=== PATIENT | female | born 1965 | race Caucasian/White ===

== ENCOUNTER 2018-06-12 22:31 | Inpatient (IN) | payer SELFPAY ==
[2018-06-12] MEDS ORDERED: IPRATROPIUM BROM 0.5MG/2.5ML ONE (22:43)
[2018-06-12] MEDS ORDERED: LEVALBUTEROL 1.25 MG/3 ML NEB ONE (22:43)
[2018-06-12] MEDS ORDERED: DEXAMETHASONE 4 MG/ML VIAL ONE (22:49)
[2018-06-12] MEDS ORDERED: METHYLPREDNISOLONE 125 MG INJ ONE (22:49)
[2018-06-12] MEDS ORDERED: Levofloxacin500mg IV 500 MG/100 ML BAG IV ONE (22:50)
--- NOTE | 2018-06-12 22:55 | ER ---
Nurse's Notes [facility] Name: Bere Cheatham Age: 52 yrs Sex: Female : 1965 Arrival Date: 06/12/2018 Time: 22:32 Bed 14 Private MD: Diagnosis: Chronic obstructive pulmonary disease with (acute) exacerbation;Tobacco abuse counseling;Tobacco use;Hypoxemia Presentation: 06/12 22:42 Presenting complaint: Patient states: "I can't seem to catch my breath. it is very hard jd3 to breath.". Transition of care: patient was not received from another setting of care. Onset of symptoms was June 12, 2018. Risk Assessment: Do you want to hurt yourself or someone else? Patient reports no desire to harm self or others. Initial Sepsis Screen: Does the patient meet any 2 criteria? RR > 20 per min. HR > 90 bpm. Does the patient have a suspected source of infection? No. Patient's initial sepsis screen is negative. Care prior to arrival: None. 22:42 Method Of Arrival: Ambulatory j 22:42 Acuity: KEANU 2 jd3 Triage Assessment: 22:47 Respiratory: Reports shortness of breath at rest Onset: The symptoms/episode jd3 began/occurred just prior to arrival, the patient has moderate shortness of breath. 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 jd3 Historical: - Allergies: 22:44 Ampicillin; jd3 - Home Meds: 22:44 None [Active]; jd3 - PMHx: 22:44 None; jd3 - PSHx: 22:44 Tonsillectomy; jd3 - Immunization history:: Adult Immunizations unknown. - Social history:: Smoking status: Patient uses tobacco products, smokes one-half pack cigarettes per day. - Ebola Screening: : Patient negative for fever greater than or equal to 101.5 degrees Fahrenheit, and additional compatible Ebola Virus Disease symptoms. Screenin:46 Abuse screen: Denies threats or abuse. Nutritional screening: No deficits noted. jd3 Tuberculosis screening: No symptoms or risk factors identified. Fall Risk IV access (20 points). Ambulatory Aid- None/Bed Rest/Nurse Assist (0 pts). Gait- Normal/Bed Rest/Wheelchair (0 pts) Mental Status- Oriented to own ability (0 pts). Total Linda Fall Scale indicates No Risk (0-24 pts). Assessment: 22:50 General: Appears uncomfortable, Behavior is cooperative, restless. Pain: Denies pain. ea Neuro: Level of Consciousness is awake, alert, obeys commands, Oriented to person, place, time, situation. Cardiovascular: Heart tones S1 S2 present Patient's skin is warm and dry. Respiratory: Respiratory: Airway is patent Respiratory effort is labored, shallow, Respiratory pattern is tachypnea Breath sounds are diminished bilaterally. Breath sounds with wheezes bilaterally. GI: No signs and/or symptoms were reported involving the gastrointestinal system. Derm: Skin is pink, warm \\T\\ dry. 23:30 Cardiovascular: Rhythm is sinus tachycardia. ea 23:57 Reassessment: Patient and/or family updated on plan of care and expected duration. Pain ea level reassessed. Patient is alert, oriented x 3, equal unlabored respirations, skin warm/dry/pink. Patient states feeling better. Patient states symptoms have improved. 06/13 00:12 Reassessment: Patient and/or family updated on plan of care and expected duration. Pain ea level reassessed. Patient is alert, oriented x 3, equal unlabored respirations, skin warm/dry/pink. Report called to Alice HENDRICKS. Patient states feeling better. Patient states symptoms have improved. Vital Signs: 06/12 22:45 BP 142 / 75; Pulse 127; Resp 27 S; Temp 97.7(O); Pulse Ox 94% on R/A; Weight 99.79 kg jd3 (R); Height 6 ft. 1 in. (185.42 cm) (R); Pain 8/10; 23:58 BP 125 / 88; Pulse 110; Resp 19; Pulse Ox 98% on 2 lpm NC; Pain 0/10; ea 06/13 00:13 BP 115 / 87; Pulse 108; Resp 19; Temp 98; Pulse Ox 96% on R/A; Pain 0/10; ea 06/12 22:45 Body Mass Index 29.03 (99.79 kg, 185.42 cm) jd3 ED Course: 06/12 22:32 Patient arrived in ED. am2 22:39 Zak Delatorre MD is Attending Physician. sophie 22:40 Initial lab(s) drawn, by me, sent to lab. First set of blood cultures drawn by me. bb Inserted saline lock: 20 gauge in right antecubital area, using aseptic technique. Blood collected. 22:44 Triage completed. jd3 22:46 Arm band placed on. jd3 22:47 Patient has correct armband on for positive identification. Placed in gown. Bed in low jd3 position. Call light in reach. Side rails up X 1. Adult w/ patient. 22:52 Kathy Gutierrez MD is Hospitalizing Provider. [facility] 22:53 Esther Chau RN is Primary Nurse. ea 22:54 X-ray completed. Portable x-ray completed in exam room. Patient tolerated procedure az well. 22:55 XRAY Chest (1 view) In Process Unspecified. EDMS 23:58 No provider procedures requiring assistance completed. Patient admitted, IV remains in ea place. Administered Medications: 22:46 Drug: SOLU-Medrol 125 mg Route: IVP; Site: right antecubital; ea 23:15 Follow up: Response: No adverse reaction; Marked relief of symptoms ea 22:46 Drug: Xopenex 3.75 mg Route: Inhalation; ea 22:46 Drug: AtroVENT Aerosol 0.5 mg Route: Inhalation; ea 22:50 Drug: Decadron - Dexamethasone 8 mg Route: IVP; Site: right antecubital; ea 23:15 Follow up: Response: No adverse reaction; Marked relief of symptoms ea 22:50 Drug: levofloxacin 500 mg Volume: 100 ml; Route: IVPB; Infused Over: 60 mins; Site: ea right antecubital; 06/13 00:16 Follow up: Response: No adverse reaction; IV Status: Completed infusion ea 06/12 23:12 Drug: NS 0.9% 500 ml Route: IV; Rate: bolus; Site: right antecubital; jd3 23:50 Follow up: IV Status: Completed infusion; IV Intake: 500ml ea 23:12 Drug: NS 0.9% 1000 ml Route: IV; Rate: 125 ml/hr; Site: right antecubital; jd3 06/13 00:15 Follow up: Response: No adverse reaction; IV Status: Infusion continued upon admission; ea IV Intake: 1000ml 06/12 23:12 Drug: Pepcid 20 mg Route: IVP; Site: right antecubital; jd3 23:50 Follow up: Response: No adverse reaction; Marked relief of symptoms ea Intake: 23:50 IV: 500ml; Total: 500ml. ea 06/13 00:15 IV: 1000ml; Total: 1500ml. ea Outcome: 06/12 22:53 Decision to Hospitalize by Provider. sophie 23:50 Admitted to Med/surg accompanied by tech, room 410, with chart, Report called to Alice krishnamurthy RN 23:50 Condition: stable 23:50 Instructed on the need for admit. 06/13 00:17 Patient left the ED. yessy Signatures: Dispatcher [employer] EDZak Tanner MD MD cha Ballard, Brenda, RN RN Salena Manrique Elena RN RN Brett Norris RN RN Malissa Doll Corrections: (The following items were deleted from the chart) 06/12 22:48 22:47 Respiratory: the patient has moderate shortness of breath stfefi kapadia
--- NOTE | 2018-06-12 22:55 | EDPHYS ---
Physician Documentation [facility] Name: Bere Cheatham Age: 52 yrs Sex: Female : 1965 Arrival Date: 06/12/2018 Time: 22:32 Bed 14 Private MD: ED Physician Zak Delatorre HPI: 06/12 22:47 This 52 yrs old Female presents to ER via Ambulatory with complaints of sophie Breathing Difficulty. 22:47 The patient has shortness of breath at rest, with light activity. Onset: The sophie symptoms/episode began/occurred 1 day(s) ago. Duration: The symptoms are continuous, and are steadily getting worse. The patient's shortness of breath has no apparent modifying factors. Associated signs and symptoms: The patient has no apparent associated signs or symptoms. Severity of symptoms: At their worst the symptoms were moderate in the emergency department the symptoms are unchanged. The patient has experienced a previous episode, last year. 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 jd3 Historical: - Allergies: 22:44 Ampicillin; jd3 - Home Meds: 22:44 None [Active]; jd3 - PMHx: 22:44 None; jd3 - PSHx: 22:44 Tonsillectomy; jd3 - Immunization history:: Adult Immunizations unknown. - Social history:: Smoking status: Patient uses tobacco products, smokes one-half pack cigarettes per day. - Ebola Screening: : Patient negative for fever greater than or equal to 101.5 degrees Fahrenheit, and additional compatible Ebola Virus Disease symptoms. ROS: 22:48 Constitutional: Negative for fever, chills, and weight loss, Eyes: Negative for injury, sophie pain, redness, and discharge, ENT: Negative for injury, pain, and discharge, Neck: Negative for injury, pain, and swelling, Cardiovascular: Negative for chest pain, palpitations, and edema, Abdomen/GI: Negative for abdominal pain, nausea, vomiting, diarrhea, and constipation, Back: Negative for injury and pain, : Negative for injury, bleeding, discharge, and swelling, MS/Extremity: Negative for injury and deformity, Skin: Negative for injury, rash, and discoloration, Neuro: Negative for headache, weakness, numbness, tingling, and seizure, Psych: Negative for depression, anxiety, suicide ideation, homicidal ideation, and hallucinations, Allergy/Immunology: Negative for hives, rash, and allergies, Endocrine: Negative for neck swelling, polydipsia, polyuria, polyphagia, and marked weight changes, Hematologic/Lymphatic: Negative for swollen nodes, abnormal bleeding, and unusual bruising. 22:48 Respiratory: Positive for cough, shortness of breath, wheezing, inspiratory, expiratory. Exam: 22:48 Constitutional: This is a well developed, well nourished patient who is awake, alert, sophie and in no acute distress. Head/Face: Normocephalic, atraumatic. Eyes: Pupils equal round and reactive to light, extra-ocular motions intact. Lids and lashes normal. Conjunctiva and sclera are non-icteric and not injected. Cornea within normal limits. Periorbital areas with no swelling, redness, or edema. ENT: Nares patent. No nasal discharge, no septal abnormalities noted. Tympanic membranes are normal and external auditory canals are clear. Oropharynx with no redness, swelling, or masses, exudates, or evidence of obstruction, uvula midline. Mucous membranes moist. Neck: Trachea midline, no thyromegaly or masses palpated, and no cervical lymphadenopathy. Supple, full range of motion without nuchal rigidity, or vertebral point tenderness. No Meningismus. Chest/axilla: Normal chest wall appearance and motion. Nontender with no deformity. No lesions are appreciated. Abdomen/GI: Soft, non-tender, with normal bowel sounds. No distension or tympany. No guarding or rebound. No evidence of tenderness throughout. Back: No spinal tenderness. No costovertebral tenderness. Full range of motion. Skin: Warm, dry with normal turgor. Normal color with no rashes, no lesions, and no evidence of cellulitis. MS/ Extremity: Pulses equal, no cyanosis. Neurovascular intact. Full, normal range of motion. Neuro: Awake and alert, GCS 15, oriented to person, place, time, and situation. Cranial nerves II-XII grossly intact. Motor strength 5/5 in all extremities. Sensory grossly intact. Cerebellar exam normal. Normal gait. Psych: Awake, alert, with orientation to person, place and time. Behavior, mood, and affect are within normal limits. 22:48 Cardiovascular: Rate: tachycardic, Rhythm: regular, Pulses: no pulse deficits are appreciated, Heart sounds: normal, Edema: is not appreciated, JVD: is not appreciated. Vital Signs: 22:45 BP 142 / 75; Pulse 127; Resp 27 S; Temp 97.7(O); Pulse Ox 94% on R/A; Weight 99.79 kg jd3 (R); Height 6 ft. 1 in. (185.42 cm) (R); Pain 8/10; 23:58 BP 125 / 88; Pulse 110; Resp 19; Pulse Ox 98% on 2 lpm NC; Pain 0/10; ea 06/13 00:13 BP 115 / 87; Pulse 108; Resp 19; Temp 98; Pulse Ox 96% on R/A; Pain 0/10; ea 06/12 22:45 Body Mass Index 29.03 (99.79 kg, 185.42 cm) jd3 MDM: 06/12 22:39 Patient medically screened. [facility] 22:48 Data reviewed: vital signs, nurses notes, lab test result(s), EKG, radiologic studies. [facility] 06/12 22:46 Order name: Basic Metabolic Panel; Complete Time: 23:57 [facility] 06/12 22:46 Order name: CBC with Diff; Complete Time: 23:57 [facility] 06/12 22:46 Order name: Ckmb; Complete Time: 23:57 [facility] 06/12 22:46 Order name: CPK; Complete Time: 23:57 [facility] 06/12 22:46 Order name: LFT's; Complete Time: 23:57 [facility] 06/12 22:46 Order name: Magnesium; Complete Time: 23:57 [facility] 06/12 22:46 Order name: NT PRO-BNP; Complete Time: 23:57 [facility] 06/12 22:46 Order name: PT-INR; Complete Time: 23:57 [facility] 06/12 22:46 Order name: Ptt, Activated; Complete Time: 23:57 [facility] 06/12 22:46 Order name: Troponin (emerg Dept Use Only); Complete Time: 23:57 [facility] 06/12 22:46 Order name: XRAY Chest (1 view) 06/12 22:46 Order name: Blood Culture Adult (2) [facility] 06/12 22:46 Order name: EKG; Complete Time: 22:48 [facility] 06/12 22:46 Order name: Cardiac monitoring; Complete Time: 23:39 [facility] 06/12 22:46 Order name: EKG - Nurse/Tech; Complete Time: 23:39 [facility] 06/12 22:46 Order name: IV Saline Lock; Complete Time: 23:39 [facility] 06/12 22:46 Order name: Labs collected and sent; Complete Time: 23:39 [facility] 06/12 22:46 Order name: O2 Per Protocol; Complete Time: 23:39 [facility] 06/12 22:46 Order name: O2 Sat Monitoring; Complete Time: 23:39 [facility] 06/12 22:46 Order name: Urine Dipstick-Ancillary (obtain specimen); Complete Time: 23:39 [facility] 06/12 22:56 Order name: CONS Physician Consult EDMS Administered Medications: 22:46 Drug: SOLU-Medrol 125 mg Route: IVP; Site: right antecubital; ea 23:15 Follow up: Response: No adverse reaction; Marked relief of symptoms ea 22:46 Drug: Xopenex 3.75 mg Route: Inhalation; ea 22:46 Drug: AtroVENT Aerosol 0.5 mg Route: Inhalation; ea 22:50 Drug: Decadron - Dexamethasone 8 mg Route: IVP; Site: right antecubital; ea 23:15 Follow up: Response: No adverse reaction; Marked relief of symptoms ea 22:50 Drug: levofloxacin 500 mg Volume: 100 ml; Route: IVPB; Infused Over: 60 mins; Site: ea right antecubital; 06/13 00:16 Follow up: Response: No adverse reaction; IV Status: Completed infusion 06/12 23:12 Drug: NS 0.9% 500 ml Route: IV; Rate: bolus; Site: right antecubital; jd3 23:50 Follow up: IV Status: Completed infusion; IV Intake: 500ml ea 23:12 Drug: NS 0.9% 1000 ml Route: IV; Rate: 125 ml/hr; Site: right antecubital; jd3 06/13 00:15 Follow up: Response: No adverse reaction; IV Status: Infusion continued upon admission; IV Intake: 1000ml 06/12 23:12 Drug: Pepcid 20 mg Route: IVP; Site: right antecubital; j 23:50 Follow up: Response: No adverse reaction; Marked relief of symptoms ea Disposition: 06/12/18 22:53 Hospitalization ordered by Kathy Gutierrez for Inpatient Admission. Preliminary diagnosis are Chronic obstructive pulmonary disease with (acute) exacerbation, Tobacco abuse counseling, Tobacco use, Hypoxemia. - Bed requested for Telemetry/MedSurg (Inpatient). - Status is Inpatient Admission. ea - Condition is Fair. - Problem is new. - Symptoms have improved. UTI on Admission? No Signatures: Dispatcher [employer] EDMS Lauren Brooks rg2 Zak Delatorre MD MD cha Antunez, Elena, RN RN ea Davies, Jonathon, RN RN jd3 Corrections: (The following items were deleted from the chart) 23:08 22:53 Hospitalization Ordered by Kathy Gutierrez MD for Inpatient Admission. Preliminary rg2 diagnosis is Chronic obstructive pulmonary disease with (acute) exacerbation; Tobacco abuse counseling; Tobacco use; Hypoxemia. Bed requested for Telemetry/MedSurg (Inpatient). Status is Inpatient Admission. Condition is Fair. Problem is new. Symptoms have improved. UTI on Admission? No. [facility] 06/13 00:17 06/12 23:08 06/12/2018 22:53 Hospitalization Ordered by Kathy Gutierrez MD for Inpatient ea Admission. Preliminary diagnosis is Chronic obstructive pulmonary disease with (acute) exacerbation; Tobacco abuse counseling; Tobacco use; Hypoxemia. Bed requested for Telemetry/MedSurg (Inpatient). Status is Inpatient Admission. Condition is Fair. Problem is new. Symptoms have improved. UTI on Admission? No. rg2
[2018-06-12] MEDS ORDERED: FAMOTIDINE 20 MG/2 ML VIAL IV ONE (23:09)
[2018-06-12] MEDS ORDERED: NA CHLORIDE 0.9% 1,000 ML ONE (23:09)
[2018-06-12] MEDS ORDERED: NA CHLORIDE 0.9% 500 ML ONE (23:09)
[2018-06-12 23:27] LABS: Absolute Lymphocytes (CBC) 2.4 K/uL (0.7-4.9); Absolute Monocytes 1.1 K/uL (0.1-1.3); Absolute Neutrophil 7.2 K/uL (1.8-8.0); Basophils % 0.6 % (0-1.3); Eosinophils % 2.5 % (0-4.4); Lymphocytes % 21.8 % (15.3-44.8); MCH 32.9 pg (27.0-35.0); MPV 10.3 fL (7.6-11.3); Monocytes % 9.7 % (3.3-12.3); RBC Red Blood Cell Count 4.44 M/uL (3.86-4.86)
[2018-06-12 23:29] LABS: Protime INR 0.97
[2018-06-12 23:41] LABS: ALT/SGPT 29 U/L (12-78); AST/SGOT 21 U/L (15-37); Albumin 4.2 g/dL (3.4-5.0); Alkaline Phosphatase 71 U/L (45-117); BUN Blood Urea Nitrogen 12 mg/dL (7-18); Bicarbonate 28 mmol/L (21-32); Bilirubin Direct 0.1 mg/dL (0-0.2); Bilirubin Total 0.3 mg/dL (0.2-1.0); CKMB Creatine Kinase MB 2.9 ng/mL (0.3-3.6); Creatine Phosphokinase 188 U/L (26-192); Glucose Level 103 mg/dL (74-106); Magnesium 2.1 mg/dL (1.8-2.4); NT PRO-BNP 210 pg/mL (<125); Potassium 3.9 mmol/L (3.5-5.1); Protein, Total 8.5 g/dL (6.4-8.2); Sodium Level 141 mmol/L (136-145); Troponin (Emerg Dept Use Only) < 0.02 ng/mL (0.0-0.045)
[2018-06-13 01:13] VITALS: BMI 28.4
[2018-06-13] MEDS ORDERED: CEFTRIAXONE 1 GM/NS 50 ML 1 GM/50 ML BAG IV SCH (02:55)
[2018-06-13] MEDS ORDERED: CEFTRIAXONE 1000 MG/VIAL ONE (03:09)
[2018-06-13] MEDS ORDERED: NA CHLORIDE 0.9% 50 ML ONE (03:12)
[2018-06-13] MEDS: IPRATROPIUM BROM 0.5MG/2.5ML NEB SCH ×3 (04:30→14:32)
[2018-06-13] MEDS: ALBUTEROL 2.5 MG/3 ML NEB SOL NEB SCH ×3 (04:30→14:32)
[2018-06-13] MEDS ORDERED: ALBUTEROL 2.5 MG/3 ML NEB SOL ONE (04:33)
[2018-06-13] MEDS ORDERED: IPRATROPIUM BROM 0.5MG/2.5ML ONE (04:33)
[2018-06-13] MEDS: METHYLPREDNISOLONE 125 MG INJ IV SCH ×3 (06:19→18:01)
--- NOTE | 2018-06-13 08:24 | P.HP ---
Certification for Inpatient Patient admitted to: Observation With expected LOS: <2 Midnights Patient will require the following post-hospital care: None Practitioner: I am a practitioner with admitting privileges, knowledge of patient current condition, hospital course, and medical plan of care. Services: Services provided to patient in accordance with Admission requirements found in Title 42 Section 412.3 of the Code of Federal Regulations Patient History Date of Service: 06/12/18 Reason for admission: Shortness of breath History of Present Illness: Patient is a 52-year-old female came into the hospital with difficulty breathing. Patient has been short of breath for the last 12-24 hr. Patient states that she was last this short of breath about 2 years ago. When she came into the ER they gave her breathing treatment and she felt much better. At that time she had [facility]. She still smokes about half a pack a day. She has been trying to cut down. She used to see a solar sales estimator in the area but she states that she was going to follow up with her own solar sales estimator in the future. At this time she will be admitted for observation for respiratory distress and and possible COPD versus asthma exacerbation. She will need outpatient pulmonary function testing to differentiate this. Allergies ampicillin Adverse Reaction (Unverified 06/12/18 23:05) Hives/Rash Home Medications: NK [No Home Meds] 06/13/18 - Past Medical/Surgical History Has patient received pneumonia vaccine in the past: No Diabetic: No -: Shortness of breath -: Tonsillectomy - Family History Mother Medical History: Cancer Father Medical History: Heart disease - Social History Smoking Status: Current every day smoker Alcohol use: Yes CD- Drugs: No Caffeine use: Yes Place of Residence: Home Review of Systems 10-point ROS is otherwise unremarkable Physical Examination - Vital Signs Temperature: 98.2 F Blood Pressure: 131/77 Pulse: 107 Respirations: 18 Pulse Ox (%): 91 - Physical Exam General: Alert, In no apparent distress, Oriented x3 HEENT: Atraumatic, PERRLA, Mucous membr. moist/pink, EOMI, Sclerae nonicteric Neck: Supple, 2+ carotid pulse no bruit, No LAD, Without JVD or thyroid abnormality Respiratory: Clear to auscultation bilaterally, Normal air movement Cardiovascular: Regular rate/rhythm, Normal S1 S2 Gastrointestinal: Normal bowel sounds, Soft and benign, Non-distended, No tenderness Musculoskeletal: No clubbing, No swelling, No tenderness Integumentary: No rashes Neurological: Normal gait, Normal speech, Normal strength at 5/5 x4 extr, Normal tone, Sensation intact, Cranial nerves 3-12 intact, Normal affect Lymphatics: No axilla or inguinal lymphadenopathy - Studies Laboratory Data (last 24 hrs) 06/12/18 22:40: PT 11.4, INR 0.97, APTT 31.7 06/12/18 22:40: WBC 11.0 H, Hgb 14.6, Hct 43.0, Plt Count 269 06/12/18 22:40: Sodium 141, Potassium 3.9, BUN 12, Creatinine 0.80, Glucose 103 , Magnesium 2.1, Total Bilirubin 0.3, AST 21, ALT 29, Alkaline Phosphatase 71 Assessment & Plan - Plan Assessment: 1. Shortness of breath 2. COPD versus asthma exacerbation 3. Tobacco abuse. Plan: 1. Continue with IV antibiotics 2. Awaiting sputum and blood culture 3. Repeat chest x-ray 4. Will proceed with CT scan of the chest to evaluate for possible emphysematous changes 5. Outpatient pulmonary consultation 6. Continue with nebs as needed 7. O2 per protocol 8. Continue with gentle hydration 9. Repeat labs including CBC and renal function in a.m. 10. GI and DVT prophylaxis Discharge Plan: Home Plan to discharge in: 24 Hours - Advance Directives Does patient have a Living Will: No Does patient have a Durable POA for Healthcare: No - Code Status/Comfort Care Code Status Assessed: Yes Code Status: Full Code Critical Care: No Time Spent Managing PTS Care (In Minutes): 50
--- NOTE | 2018-06-13 08:43 | RAD REPORT ---
EXAM DESCRIPTION: RAD - Chest Single View - 06/12/2018 10:55 pm CLINICAL HISTORY: COPD;Cough Chest pain. COMPARISON: Chest Angio dated 06/13/2018 FINDINGS: Portable technique limits examination quality. The lungs are grossly clear. The heart is normal in size. No displaced fractures. IMPRESSION: No acute intrathoracic process suspected.
--- NOTE | 2018-06-13 08:53 | RAD REPORT ---
EXAM DESCRIPTION: CT - Chest Angio - 06/13/2018 6:56 am CLINICAL HISTORY: Chest pain. COPD COMPARISON: Chest Single View dated 06/12/2018 TECHNIQUE: CT angiogram of the pulmonary arteries was performed with MIP. All CT scans are performed using dose optimization technique as appropriate and may include automated exposure control or mA/KV adjustment according to patient size. FINDINGS: No evidence of pulmonary thromboembolism. Mild motion degradation is present. No acute aortic finding demonstrated. The lungs are clear. No significant pericardial or pleural fluid. No concerning bony finding. Small hiatal hernia. IMPRESSION: No evidence of pulmonary thromboembolism. No acute lung findings.
[2018-06-13] MEDS ORDERED: CEFTRIAXONE/SWI 1gm 1 GM/10 ML SYR IV SCH (09:00)
--- NOTE | 2018-06-13 11:02 | EKG ---
Test Date: 2018-06-12 Test Time: 23:07:26 State Archivist: DELIA MEASUREMENT RESULTS: Intervals: Rate: 127 IA: 138 QRSD: 82 QT: 314 QTc: 456 Dresher: P: 79 IA: 138 QRS: 76 T: 24 INTERPRETIVE STATEMENTS: Sinus tachycardia Nonspecific ST abnormality Abnormal ECG No previous ECG available for comparison Electronically Signed On 06-13-18 11:00:42 CDT by Bradford Martinez
[2018-06-13] MEDS: NA CHLORIDE 0.9% 1,000 ML IV SCH (14:53)
[2018-06-13] MEDS ORDERED: LEVALBUTEROL 1.25 MG/3 ML NEB NEB PRN (14:58)
[2018-06-13] MEDS ORDERED: IPRATROPIUM BROM 0.5MG/2.5ML NEB PRN (15:00)
--- NOTE | 2018-06-13 17:43 | PN ---
Date of Progress Note: 06/13/2018 Subjective: The patient seen and examined, chart reviewed and case discussed with RN. The patient s till having some difficulty breathing after ambulation. Overall feels slightly better. Review of Systems: Negative except as above. Medications: List reviewed. Objective: Vital Signs: Temperature 98.2, heart rate 107, blood pressure 131/77, respirations 18, O 2 90% on 2 L via nasal cannula. General: Awake, alert, oriented x3. Some mild respiratory distress. Slightly ill-appearing female. CVS: S1, S2. Sinus tachycardia. No murmurs. Peripheral pulses present. Respiratory: Diminished breath sounds. No wheezing. The patient is tachypneic. Gastrointestinal: Abdomen is soft, nontender, nondistended. Positive bowel sounds. Extremities: No clubbing, cyanosis, edema. Neurologic: Nonfocal. Laboratory Data: Triglycerides 142, cholesterol 161, LDL 87, HDL 46. Blood cultures pending. CT an cathy chest shows no evidence of pulmonary embolism. No other acute findings. Assessment And Plan: A 52-year-old female with: 1.Shortness of breath. 2.Chronic obstructive pulmonary disease versus possible asthma exacerbation. 3.Nicotine dependence with cigarette smoking, counseled. Plan: I doubt any pneumonia. We will discontinue Rocephin. We will follow up on blood cultures. R epeat chest x-ray in a.m. CT chest does not show any PE. The patient does have some sinus tachycard ia, likely from nebulizer treatments. We will continue to monitor. EKG did not show any acute ST el evation. We will try to wean off O2. O2 levels on room air after exertion did show some hypoxia at 90%. We will continue to monitor. Likely discharge in a.m. if continues to improve. SA/MODL Voice ID: [id number] Report ID: [id number]
[2018-06-13] MEDS ORDERED: GUAIFENESIN/CODEINE 5ML UCUP PO PRN (19:58)
[2018-06-14] MEDS: METHYLPREDNISOLONE 125 MG INJ IV SCH ×2 (01:08→05:25)
[2018-06-14] MEDS: NA CHLORIDE 0.9% 1,000 ML IV SCH ×2 (01:08→10:00)
--- NOTE | 2018-06-14 10:42 | RAD REPORT ---
EXAM DESCRIPTION: RAD - Chest Single View - 06/14/2018 10:29 am CLINICAL HISTORY: Cough, shortness of breath COMPARISON: Portable chest June 12, 2018 TECHNIQUE: AP portable chest image was obtained 1013 hours . FINDINGS: No new mass or consolidation. Heart size and vasculature are within normal limits. Inspira tory effort is slightly shallow compared to the prior study. No new lung parenchymal process confirme d. Trachea is midline. No pneumothorax or large pleural effusion. Interstitial markings are mildly pr ominent as a baseline. No gross bony abnormality seen. No acute aortic findings suspected. IMPRESSION: No acute cardiopulmonary process. Chest is not significantly different from the comparison.
[2018-06-14 15:02] VITALS: O2SAT 93
[2018-06-14 17:36] VITALS: BP 122/68; TEMP 97
[2018-06-14] MEDS ORDERED: predniSONE 20 MG TAB PO SCH ×2 (21:00)
--- NOTE | 2018-06-15 05:00 | DS ---
Date of Discharge: 06/14/2018 Admitting Diagnoses: 1.Shortness of breath. 2.Acute asthma exacerbation. 3.Nicotine dependence. Discharge Diagnoses: 1.Shortness of breath. 2.Hypoxia. 3.Probable asthma with acute exacerbation. 4.Nicotine dependence with cigarette smoking, counseled. 5.Sinus tachycardia, resolved. Hospital Course: The patient is a 52-year-old female who comes in with shortness of breath. The pat iecookie had been diagnosed with asthma versus COPD at that time and she was given inhalers, which improv ed her symptoms; however, patient has not needed to use them recently. The patient does report some allergens that exacerbate her symptoms in the spring and fall. She does report some nighttime sympto ms. In the ER, her workup had shown a white count of 11,000. Otherwise, her electrolytes were stabl e. She did have some blood cultures drawn, which were negative. Imaging studies did not show any pn eumonia or infiltrates. The patient did have some tachycardia and chest tightness. CT angio was don e, which showed no evidence of PE, no acute lung findings. The patient was desaturating with exertio n, and she was started on nebulized treatments and steroids. The patient's condition improved. Unfo rtunately, she is uninsured and does not have a primary care physician; however, she is willing to es tablish care with a mobile phone salesperson, obtain PFTs and establish care with a PCP. The patient states cole t she knows how to use the inhalers. The patient was feeling better, her shortness of breath improve d. She was still having some residual cough and was getting cough suppressants. She understands cole t the cough will be the last thing to resolve, will likely take 2-4 weeks. The patient was able to a mbulate without getting short of breath, she was saturating 93% on room air. The patient was then di scharged home in a stable condition. Activity: No strenuous activity. Diet: Regular. Followup: Establish care with PCP in 2-3 days. Follow up with mobile phone salesperson, Dr. Moser, in 1-2 w eeks. Return to ER for worsening condition. Will have PFTs scheduled as outpatient. Medications: As per medication reconciliation list. Discharge Instructions: The patient encouraged to have allergy testing done and to avoid allergens, and to take [id number] Zyrtec or Claritin for allergy symptoms. The patient voiced understandi ng. The patient was then cleared for discharge and sent home. Physical Examination: General: Awake, alert, oriented x3. No acute distress. Respiratory: Moving air well bilaterally. No wheezing or stridor. The patient is not tachypneic an d not in any acute respiratory distress. CV: S1, S2. No murmurs. Regular rate and rhythm. Peripheral pulses present. Gastrointestinal: Abdomen is soft, nontender, nondistended. Positive bowel sounds. Extremities: No clubbing, cyanosis, or edema. Neurologic: Nonfocal. SA/MODL Voice ID: [id number] Report ID: [id number]
== END 2018-06-14 17:42 | disposition home or self-care (01) | DRG 203 ==
LOC: ER 22:31 → 4TH 23:12 → INTOOBSV 23:12 → OBSVTOIN 06-14 11:16
PROVIDERS: ADMIT Hospitalist; ATTEND Family Medicine
DX: J45.901 Unspecified asthma with (acute) exacerbation (principal); R09.02 Hypoxemia; F17.210 Nicotine dependence, cigarettes, uncomplicated; R00.0 Tachycardia, unspecified; Z88.1 Allergy status to other antibiotic agents
CPT/HCPCS: 36415; 71045; 71275; 80048; 80061; 80076; 82550; 82553; 83735; 83880; 84484; 85025; 85610; 85730; 87040; 93005; 94640; 94760; 96365; 96375; 99285; G0378; J0696; J2930; J7030; Q9967